=== PATIENT | female | born 1945 | race Caucasian/White ===

== ENCOUNTER 2017-02-24 16:20 | Emergency (ER) | payer OTHER, MEDICARE ==
[~2017-02-24 16:20] MED LIST: BENADRYL ALLERG25 M1 PO; CIPRO 500MG TA500 MG PO; DIFLUCAN150 M1 PO; DIFLUCAN150 MG PO; DILAUDID2 MG PO; GABAPENTIN100 MG PO; HYOSCYAMINE0.125 MG PO; LUVOX PO; MACROBID100 MG PO; MIRTAZAPINE15 MG PO; MULTIVITAMIN1 TAB PO; PERCOCET 325 MG1 TA2 PO; PYRIDIUM100 MG PO; RISPERIDONE1 MG PO; RITE AID MELATO10 MG PO; SIMVASTATIN20 MG PO; VITAMIN D32000 I1 PO; XANAX XR1 MG PO
--- NOTE | 2017-02-24 16:38 | ED GENERAL ADULT ---
History of Present Illness General Chief Complaint: General Adult Stated Complaint: BIBA WITH VERY DARK DIARRHEA Source: patient, family, old records, EMS Exam Limitations: no limitations Vital Signs & Intake/Output Vital Signs & Intake/Output Vital Signs Date Time Temp Pulse Resp B/P Pulse O2 O2 Flow FiO2 Ox Delivery Rate 02/24 2038 98.7 63 18 122/65 96 02/24 1748 95 Room Air 02/24 1630 98.1 69 18 149/70 96 Allergies Coded Allergies: NO KNOWN ALLERGIES (12/25/15) Triage Nurses Notes Reviewed? yes Onset: Gradual Duration: day(s): (3) Timing: no prior history Injury Environment: home Severity: moderate HPI: Patient is a 71-year-old female presenting to the emergency department with via ambulance for chief complaint of diarrhea this tingling for the past 3 days but she reports approximately 5-10 episodes of dark stool that is loose with past 3 days. Denies any fevers or chills. No abdominal pain. No recent travel. Denies recent antibiotic use. The reports that she's been using [id number] anti-blow medication, not sure whats in it. Denies any urinary symptoms. She still drinking and eating without difficulty but reports that she has a go to the bathroom. (CHRISTA SHETTY,MAIA) Reconcile Medications Alprazolam (Xanax XR) 1 MG TAB.ER.24H 1 TAB PO BID ANXIETY (Reported) CHOLECALCIFEROL (VITAMIN D3) (Vitamin D-3) 2,000 UNIT CAPSULE 1 SGL PO DAILY SUPPLEMENT (Reported) Dicyclomine Hydrochloride (Bentyl) 10 MG CAPSULE 1 CAP PO TID PRN abdominal spasms Dicyclomine Hydrochloride (Bentyl) 10 MG CAPSULE 1 CAP PO TID PRN abdominal spasms DIPHENHYDRAMINE HCL (Benadryl) 25 MG CAPSULE 1 CAP PO QPM SLEEP (Reported) Fluconazole (Diflucan) 150 MG TABLET 1 TAB PO ONCE CANDIDIASIS Gabapentin 100 MG CAPSULE 1 CAP PO TID VAGINAL BURNING (Reported) Melatonin ([facility] Melatonin) 10 MG TAB 1 TAB PO QHS SLEEP (Reported) Multivitamin (Multiple Vitamins) 1 EACH TABLET 1 TAB PO DAILY SUPPLEMENT ( Reported) Simvastatin (Zocor) 20 MG TAB 1 TAB PO QPM CHOLESTEROL (Reported) (CROW KEBEDE,DIANDRA Fry) Past History Travel History Traveled to [place] past 21 day No Medical History Any Pertinent Medical History? see below for history Neurological: NONE EENT: NONE Cardiovascular: hyperlipidemia Respiratory: NONE Gastrointestinal: GERD, irritable bowel syndrome Hepatic: NONE Renal: KIDNEY STONE PYELONEPHRITIS HYDRONEPHROSIS R W/STENT UTI'S NEPHROLITHIASIS Musculoskeletal: BACK PAIN Psychiatric: anxiety, depression, OCD Endocrine: NONE Blood Disorders: SJOGREN'S SYNDROME Cancer(s): NONE BAKER CHEF/Reproductive: NONE Other Medical Hx: UTI, pyelonephritis, vaginal candidiasis Surgical History Surgical History: cataract removal, RT KNEE REPLACEMENT RT LUMPECTOMY RT ARM TENDON REPAIR Psychosocial History Who do you live with Spouse What is your primary language Indonesian Family History Hx Contributory? No (MAIA PROCTOR) Review of Systems Review of Systems Constitutional: Reports: no symptoms. Comments Review of systems: See HPI, All other systems negative. Constitutional, no chills fever or weight loss HEENT: No visual changes no sore throat no congestion Cardiovascular: No chest pain ,palpitation , orthopnea or ankle swelling Skin, no jaundice no rashes Respiratory: No dyspnea cough sputum or hemoptysis GI: No nausea no vomiting : No dysuria No hematuria Muscle skeletal: no back pain, no neck pain, Neurologic: No numbness no confusion no headaches Psych: No stress anxiety or depression,. Heme/endocrine: No bruising no bleeding no polyuria or polydipsia Immunology: No splenectomy or history of AIDS (MAIA PROCTOR) Physical Exam Physical Exam General Appearance: well developed/nourished, no apparent distress, alert, awake , comfortable Comments: Well-developed well-nourished person in no acute distress HEENT: Pupils equally round and reactive to light and accommodation. Nose is atraumatic. Moist oral mucosa. No pallor to palpable conjunctiva. Neck: Supple, no lymphadenopathy, normal range of motion without pain or tenderness Back: Nontender, no CVA tenderness. Cardiovascular: Regular rate and rhythms no murmurs rubs or gallops, normal JVP Respiratory: Chest nontender. No respiratory distress.breath sounds clear to auscultation bilaterally Abdomen: Soft, nontender nondistended, no appreciable organomegaly. Normal bowel sounds. No ascites. No rebound or guarding. Negative psoas and attempted to stand. Rectal: Tender, brown stool guaiac negative. Extremity: No edema Neuro: Alert oriented x3 Skin: No appreciable rash on exposed skin, skin is warm and dry. Psych: Mood and affect is normal, memory and judgment is normal. Core Measures ACS in differential dx? No CVA/TIA Diagnosis: No Severe Sepsis Present: No Septic Shock Present: No (CHRISTA SHETTY,MAIA) Progress Differential Diagnoses I considered the following diagnoses in my evaluation of the patient: Dehydration, electrolyte abnormality, C. difficile, diverticulitis, SBO, viral syndrome Plan of Care: Orders Procedure Date/time Status CULTURE,STOOL 02/24 1637 Active C.DIFFICILE 02/24 1637 Active COMPREHENSIVE METABOLIC PANEL 02/24 1637 Complete CBC WITHOUT DIFFERENTIAL 02/24 1637 Complete Laboratory Tests 02/24/17 165: Anion Gap 9, Estimated GFR > 60, BUN/Creatinine Ratio 15.7, Glucose 90, Calcium 9.7, Total Bilirubin 0.8, AST 33, ALT 51, Alkaline Phosphatase 88, Total Protein 6.8, Albumin 4.0, Globulin 2.8, Albumin/Globulin Ratio 1.4, CBC w Diff NO MAN DIFF REQ, RBC 4.84, MCV 96.2, MCH 32.2 H, RDW 14.2, MPV 8.3, Gran % 76.8 H, Lymphocytes % 14.8 L, Monocytes % 7.6, Eosinophils % 0.5, Basophils % 0.3, Absolute Granulocytes 4.1, Absolute Lymphocytes 0.8 L, Absolute Monocytes 0.4, Absolute Eosinophils 0, Absolute Basophils 0, PUBS MCHC 33.5 02/24/171636: Urine Color Cancelled, Urine Clarity Cancelled, Urine pH Cancelled, Ur Specific [place] Cancelled, Urine Protein Cancelled, Urine Ketones Cancelled, Urine Nitrite Cancelled, Urine Bilirubin Cancelled, Urine Urobilinogen Cancelled, Ur Leukocyte Esterase Cancelled, Ur Microscopic Cancelled, Urine Hemoglobin Cancelled, Urine Glucose Cancelled Microbiology 02/24 1745 STOOL: Clostridium difficile Toxin A & B - RECD 02/24 1745 STOOL: Stool Culture - RECD Diagnostic Imaging: Viewed by Me: CT Scan. Discussed w/RAD: CT Scan. Radiology Impression: PATIENT: ROSALIND NOVAK PRESENT AGE: 71 PATIENT ACCOUNT NO: [id number] : 47 LOCATION: [facility] ORDERING PHYSICIAN: MAIA SHETTY SERVICE DATE: 02/24/178536 EXAM TYPE: CAT - CT ABD & PELVIS W IV CONTRAST EXAMINATION: CT ABDOMEN AND PELVIS WITH CONTRAST CLINICAL INFORMATION: Abdominal pain. Diarrhea. Rule out diverticulitis. COMPARISON: Renal ultrasound of 12/25/2015. CT abdomen and pelvis of 04/06/2015 and 10/17/2010. TECHNIQUE: Multidetector volumetric imaging was performed of the abdomen and pelvis before and after the IV administration of 95 mL of Optiray 350 intravenous contrast. Sagittal and coronal reformatted images were obtained on the technologist's workstation. DLP: 268.83 mGy-cm FINDINGS: SHOE DRESSER: Note is again made of thoracolumbar scoliosis with significant elevation of the right hemidiaphragm. LUNG BASES: The visualized lung bases are unremarkable. LIVER, GALLBLADDER, AND BILIARY TREE: The liver is normal in size, shape, and attenuation. No focal hepatic lesion or biliary ductal dilatation is present. The gallbladder is physiologically distended and multiple small layering gallstones are again noted. No evidence of gallbladder wall thickening or obvious pericholecystic inflammatory changes. PANCREAS: Unremarkable. SPLEEN: Unremarkable. ADRENAL GLANDS: Unremarkable. KIDNEYS AND URETERS: The kidneys are normal in size, shape, and attenuation. No hydronephrosis, hydroureter, or calculi are seen. No perinephric stranding. BLADDER: Unremarkable. GASTROINTESTINAL TRACT: Mild diverticulosis of the sigmoid colon without acute diverticulitis. No evidence of colonic wall thickening or pericolonic fat stranding. An appendix is not clearly identified, however, there are no inflammatory changes in the expected location of the appendix. The small bowel loops are unremarkable. The stomach is largely decompressed and, therefore, the evaluation is limited. PERITONEAL CAVITY: No free intraperitoneal air or fluid. No inflammatory changes or nodularity seen in the omentum and mesentery. ABDOMINAL WALL: There is a stable small umbilical hernia containing fat. LYMPH NODES: No pathologically enlarged lymph nodes. VASCULAR: The aortoiliac vessels are normal in caliber. Mild scattered calcific atherosclerosis of the aorta. PELVIC VISCERA: The uterus is normal in size. There is a stable calcified fibroid in the left uterine fundus measuring 1.1 cm. The right ovary is unremarkable. There is a 1.2 cm left ovarian hypodense lesion which is new compared to the previous study and represents a cyst by CT Hounsfield unit criteria. OSSEOUS STRUCTURES: Dextroscoliosis of the visualized mid thoracic spine, levoscoliosis of the lower thoracic and upper lumbar spine and dextrosclerosis of the lower lumbar spine is again noted. There is no evidence of acute or suspicious osseous abnormality. Facet arthropathy is noted at multiple levels in the lumbar spine. IMPRESSION: 1. Mild diverticulosis of the sigmoid colon without acute diverticulitis. No CT evidence of colitis. 2. No acute abnormality. 3. Known cholelithiasis. 4. A 1.2 cm hypodense lesion in the left ovary is new compared to the previous CT of 2014 and most likely represents a cyst. Ultrasound correlation may be considered on a nonemergent basis. DICTATED BY: PARAS KEBEDE,BUSTER Initial ED EKG: none Comments: IV fluids initiated on arrival. Patient has no abdominal pain. Vitals are stable. Guaiac is negative. 02/24/2017 7:47:41 PM patient and family member informed of all lab work results and imaging study results. Patient still pain-free. Patient has had one episode of diarrhea while here in the hospital. The is concerned because she hasn't eaten all day so she goes home and eats he is concerned that she'll have diarrhea again. It was explained to the patient and that we cannot admit everyone who comes in with diarrhea. Patient's vitals are stable, lab work is unremarkable. CT does not show any evidence of colitis or diverticulitis. We will by mouth challenge the patient. Patient tolerating fluids without difficulty. Eating crackers. Informed on certain foods to eat with diarrhea. Description was sent to their pharmacy. (MAIA PROCTOR) Departure Departure Time of Disposition: 1936 Disposition: HOME OR SELF CARE Condition: Stable Clinical Impression Primary Impression: Diarrhea Qualifiers: Diarrhea type: unspecified type Qualified Code: R19.7 - Diarrhea, unspecified Referrals: EMILEE KEBEDE,LATA Adams (PCP/Family) MICHELLE KEBEDE,CAROLINA Monte Additional Instructions: Follow-up with gastroenterology called to make an appointment. Increase fluids. Take Bentyl as prescribed to help with abdominal discomfort. Return for worsening symptoms or concerns. We will call you at the stool culture results. PATIENT: ROSALIND NOVAK PRESENT AGE: 71 PATIENT ACCOUNT NO: [id number] : 47 LOCATION: [facility] ORDERING PHYSICIAN: MAIA SHETTY SERVICE DATE: 02/24/178249 EXAM TYPE: CAT - CT ABD & PELVIS W IV CONTRAST EXAMINATION: CT ABDOMEN AND PELVIS WITH CONTRAST CLINICAL INFORMATION: Abdominal pain. Diarrhea. Rule out diverticulitis. COMPARISON: Renal ultrasound of 12/25/2015. CT abdomen and pelvis of 04/06/2015 and 10/17/2010. TECHNIQUE: Multidetector volumetric imaging was performed of the abdomen and pelvis before and after the IV administration of 95 mL of Optiray 350 intravenous contrast. Sagittal and coronal reformatted images were obtained on the technologist's workstation. DLP: 268.83 mGy-cm FINDINGS: SHOE DRESSER: Note is again made of thoracolumbar scoliosis with significant elevation of the right hemidiaphragm. LUNG BASES: The visualized lung bases are unremarkable. LIVER, GALLBLADDER, AND BILIARY TREE: The liver is normal in size, shape, and attenuation. No focal hepatic lesion or biliary ductal dilatation is present. The gallbladder is physiologically distended and multiple small layering gallstones are again noted. No evidence of gallbladder wall thickening or obvious pericholecystic inflammatory changes. PANCREAS: Unremarkable. SPLEEN: Unremarkable. ADRENAL GLANDS: Unremarkable. KIDNEYS AND URETERS: The kidneys are normal in size, shape, and attenuation. No hydronephrosis, hydroureter, or calculi are seen. No perinephric stranding. BLADDER: Unremarkable. GASTROINTESTINAL TRACT: Mild diverticulosis of the sigmoid colon without acute diverticulitis. No evidence of colonic wall thickening or pericolonic fat stranding. An appendix is not clearly identified, however, there are no inflammatory changes in the expected location of the appendix. The small bowel loops are unremarkable. The stomach is largely decompressed and, therefore, the evaluation is limited. PERITONEAL CAVITY: No free intraperitoneal air or fluid. No inflammatory changes or nodularity seen in the omentum and mesentery. ABDOMINAL WALL: There is a stable small umbilical hernia containing fat. LYMPH NODES: No pathologically enlarged lymph nodes. VASCULAR: The aortoiliac vessels are normal in caliber. Mild scattered calcific atherosclerosis of the aorta. PELVIC VISCERA: The uterus is normal in size. There is a stable calcified fibroid in the left uterine fundus measuring 1.1 cm. The right ovary is unremarkable. There is a 1.2 cm left ovarian hypodense lesion which is new compared to the previous study and represents a cyst by CT Hounsfield unit criteria. OSSEOUS STRUCTURES: Dextroscoliosis of the visualized mid thoracic spine, levoscoliosis of the lower thoracic and upper lumbar spine and dextrosclerosis of the lower lumbar spine is again noted. There is no evidence of acute or suspicious osseous abnormality. Facet arthropathy is noted at multiple levels in the lumbar spine. IMPRESSION: 1. Mild diverticulosis of the sigmoid colon without acute diverticulitis. No CT evidence of colitis. 2. No acute abnormality. 3. Known cholelithiasis. 4. A 1.2 cm hypodense lesion in the left ovary is new compared to the previous CT of 2014 and most likely represents a cyst. Ultrasound correlation may be considered on a nonemergent basis. DICTATED BY: BUSTER CRAIN MD DATE/TIME DICTATED:02/24/171855 REGULATORY COMPLIANCE SPECIALIST:NILTON DATE/TIME TRANSCRIBED:02/24/171855 CONFIDENTIAL, DO NOT COPY WITHOUT APPROPRIATE AUTHORIZATION. <Electronically signed in Other Vendor System> SIGNED BY: BUSTER CRAIN MD 02/24/171934 Departure Forms: Customer Survey General Discharge Information (MAIA PROCTOR) Departure Prescriptions: Current Visit Scripts Dicyclomine Hydrochloride (Bentyl) 1 CAP PO TID PRN abdominal spasms #20 CAP Dicyclomine Hydrochloride (Bentyl) 1 CAP PO TID PRN abdominal spasms #20 CAP PA/SATELLITE DISH TECHNICIAN Co-Sign Statement Statement: ED Attending supervision documentation- [X] I saw and evaluated the patient. I have also reviewed all the pertinent lab results and diagnostic results. I agree with the findings and the plan of care as documented in the PA's/SATELLITE DISH TECHNICIAN's documentation. [X] I have reviewed the ED Record and agree with the PA's/SATELLITE DISH TECHNICIAN's documentation. [] Additions or exceptions (if any) to the PAs/SATELLITE DISH TECHNICIAN's note and plan are summarized below: [] (CROW KEBEDE,DIANDRA Fry) Critical Care Note Critical Care Note Critical Care Time: non-applicable (MAIA PROCTOR)
[2017-02-24 17:02] LABS: ABSOLUTE BASOPHIL COUNT 0 /CUMM (0.0-0.2); ABSOLUTE EOSINOPHIL COUNT 0 /CUMM (0.0-0.7); ABSOLUTE GRANULOCYTE CT 4.1 /CUMM (1.4-6.5); ABSOLUTE LYMPH COUNT 0.8 /CUMM (1.2-3.4); ABSOLUTE MONOCYTE COUNT 0.4 /CUMM (0.10-0.60); BASOPHIL % 0.3 % (0.0-2.0); EOSINOPHIL % 0.5 % (0-5); GRANULOCYTE % 76.8 % (42.2-75.2); HEMATOCRIT 46.5 % (37-47); MEAN CORPUSCULAR HGB 32.2 PG (27.0-31.0); MEAN CORPUSCULAR HGB CONC 33.5 G/DL (33.0-37.0); MEAN CORPUSCULAR VOLUME 96.2 FL (81.0-99.0); MEAN PLATELET VOLUME 8.3 FL (7.4-10.4); PLATELET COUNT 174 /CUMM (130-400); RBC DISTRIBUTION WIDTH 14.2 % (11.5-14.5); RED BLOOD CELL CT 4.84 /CUMM (4.20-5.40); WHITE BLOOD CELL COUNT 5.4 /CUMM (4.8-10.8)
--- NOTE | 2017-02-24 19:35 | CT SCAN REPORT ---
EXAMINATION: CT ABDOMEN AND PELVIS WITH CONTRAST CLINICAL INFORMATION: Abdominal pain. Diarrhea. Rule out diverticulitis. COMPARISON: Renal ultrasound of 12/25/2015. CT abdomen and pelvis of 04/06/2015 and 10/17/2010. TECHNIQUE: Multidetector volumetric imaging was performed of the abdomen and pelvis before and after the IV administration of 95 mL of Optiray 350 intravenous contrast. Sagittal and coronal reformatted images were obtained on the technologist's workstation. DLP: 268.83 mGy-cm FINDINGS: DISCOVERY GUIDE: Note is again made of thoracolumbar scoliosis with significant elevation of the right hemidiaphragm. LUNG BASES: The visualized lung bases are unremarkable. LIVER, GALLBLADDER, AND BILIARY TREE: The liver is normal in size, shape, and attenuation. No focal hepatic lesion or biliary ductal dilatation is present. The gallbladder is physiologically distended and multiple small layering gallstones are again noted. No evidence of gallbladder wall thickening or obvious pericholecystic inflammatory changes. PANCREAS: Unremarkable. SPLEEN: Unremarkable. ADRENAL GLANDS: Unremarkable. KIDNEYS AND URETERS: The kidneys are normal in size, shape, and attenuation. No hydronephrosis, hydroureter, or calculi are seen. No perinephric stranding. BLADDER: Unremarkable. GASTROINTESTINAL TRACT: Mild diverticulosis of the sigmoid colon without acute diverticulitis. No evidence of colonic wall thickening or pericolonic fat stranding. An appendix is not clearly identified, however, there are no inflammatory changes in the expected location of the appendix. The small bowel loops are unremarkable. The stomach is largely decompressed and, therefore, the evaluation is limited. PERITONEAL CAVITY: No free intraperitoneal air or fluid. No inflammatory changes or nodularity seen in the omentum and mesentery. ABDOMINAL WALL: There is a stable small umbilical hernia containing fat. LYMPH NODES: No pathologically enlarged lymph nodes. VASCULAR: The aortoiliac vessels are normal in caliber. Mild scattered calcific atherosclerosis of the aorta. PELVIC VISCERA: The uterus is normal in size. There is a stable calcified fibroid in the left uterine fundus measuring 1.1 cm. The right ovary is unremarkable. There is a 1.2 cm left ovarian hypodense lesion which is new compared to the previous study and represents a cyst by CT Hounsfield unit criteria. OSSEOUS STRUCTURES: Dextroscoliosis of the visualized mid thoracic spine, levoscoliosis of the lower thoracic and upper lumbar spine and dextrosclerosis of the lower lumbar spine is again noted. There is no evidence of acute or suspicious osseous abnormality. Facet arthropathy is noted at multiple levels in the lumbar spine. IMPRESSION: 1. Mild diverticulosis of the sigmoid colon without acute diverticulitis. No CT evidence of colitis. 2. No acute abnormality. 3. Known cholelithiasis. 4. A 1.2 cm hypodense lesion in the left ovary is new compared to the previous CT of 2014 and most likely represents a cyst. Ultrasound correlation may be considered on a nonemergent basis.
[2017-02-24] MEDS ORDERED: BENTYL10 M1 PO ×2 (19:39→20:45)
[2017-02-24 20:38] VITALS: BP 122/65
== END 2017-02-24 21:35 ==
LOC: ERH 16:20
PROVIDERS: Physician Assistant
DX: R19.7 Diarrhea, unspecified (principal)
CPT/HCPCS: 74177; 87045; 96360